=== PATIENT | female | born 1985 | race Caucasian/White ===

== ENCOUNTER 2023-12-30 10:00 | Outpatient (CLI) | payer OTHER, SELFPAY ==
[2023-12-30 10:42] LABS: Hematocrit 42.8 % (37.0-47.0); Hemoglobin 14.4 g/dL (12.0-15.0); Mean Corpuscular HGB Conc 33.6 g/dl (32-36); Mean Corpuscular Hemoglobin 31.4 pg (26-34); Mean Corpuscular Volume 93.4 fl (80-100); Mean Platelet Volume 10.1 fl (7.4-10.4); Platelet Count Result 237 k/mm3 (150-375); Red Blood Count 4.58 M/mm3 (4.2-5.4); Red Cell Distribution Width 12.9 % (11.5-14.5); White Blood Count 6.5 K/mm3 (4.5-10.0)
[2023-12-30 11:10] LABS: Albumin Level 4.3 g/dL (3.5-5.1); Anion Gap 8 mmol/L (4-12); Blood Urea Nitrogen 15 mg/dL (7-17); Calcium 9.2 mg/dL (8.4-10.2); Carbon Dioxide 28 mmol/L (22-30); Chloride 101 mmol/L (98-107); Estimated Glomerular Filt Rate > 60; Glucose 94 mg/dL (65-110); Potassium 3.8 mmol/L (3.4-5.0); Sodium 137 mmol/L (137-145)
[2023-12-30 12:27] LABS: Iron 86 ug/dL (37-170)
[2023-12-30 15:45] LABS: Prealbumin 26.2 mg/dL (17.6-36.0)
[2024-01-02 05:13] LABS: Vitamin B1 8 nmol/L (8-30)
== END 2023-12-30 10:01 | disposition home or self-care (01) ==
LOC: ANHLAB 10:05
PROVIDERS: Visit Provider Surgery Plastic and Reconstructive Surgery
DX: R63.4 Abnormal weight loss (principal)
CPT/HCPCS: 36415; 80048; 82040; 83540; 84134; 84425; 85027

== ENCOUNTER 2024-01-23 01:29 | Day surgery (SDC) | payer OTHER, SELFPAY ==
[2024-01-15 14:00] VITALS: BMI 30.2
--- NOTE | 2024-01-15 14:12 | SUR.PREOP ---
Report to the Outpatient Waiting Room, entrance under the green pavilion located off [facility], at time 0600 on date 01/23/2024. Planned Procedure Time: 0730.? Time changes happen often and if your time is changed the preop area will call you the afternoon before. - You and your visitor will be asked to self-screen and do not enter if you have any COVID symptoms. Please call surgeon if you need to reschedule. - A mask is optional within the hospital at this time. Patients may have clear liquids (water, carbonated beverages, clear teas, apple juice) until 3 hours prior to surgery with a maximum of 20 ounces. - No food from midnight until time of surgery and no smoking - Infants may have breast milk until 4 hours before surgery, infant formula 6 hours prior to surgery. - Children will be allowed to drink immediately following surgery.? If applicable, please bring a bottle or sippy cup to assist with drinking. Juice, water, soda, and popsicles are readily available.? For infants on formula, please bring formula the day of surgery.? Pacifiers are allowed. Take only the following medications with a SIP of water on the morning of surgery: N/A DO NOT STOP ANY OF YOUR OTHER PRESCRIPTION MEDICATIONS PRIOR TO SURGERY EXCEPT THE FOLLOWING Medications to discontinue per physician N/A Date to take last dose N/A Please no make-up, nail belizean, hairspray, perfume, deodorant, or body powder the day of surgery.? No jewelry (including any body piercings) or valuables the day of surgery, leave them at home.? Please take a shower or bath the night before, or the morning of, surgery with an antibacterial soap.? Wear comfortable, loose fitting clothing.? Children are encouraged to wear pajamas. - Jewelry must be removed prior to entering the operating room.? Rings and piercings that are not removed may be cut off. - The hospital will not accept responsibility for valuables.? - Please leave all valuables, including medications, at home the day of surgery. If you are going home after surgery, a licensed shuttle van driver must drive you home.? - NO public transportation without another adult if you receive anesthesia. - We recommend that an adult stay with you for 24 hours following discharge. - We also recommend that you do not drive, make important decision, drink alcoholic beverages, or take any drugs that were not prescribed by your health care provider for at least 24 hours after your discharge time. For Pediatric surgeries, we recommend two adults accompany the child home. Follow any additional instructions given to you from your surgeon. Telephone instructions given to Rachel Pat and asked if any additional questions and then verbalized understanding. Patient advised to call surgeon office or pre surgery nurse liaison [phone] if any additional questions.
[2024-01-23] VITALS (11 sets, daily range): BP systolic 116–137; BP diastolic 59–85; PULSE 55–88; RESP 12–20; TEMP 36.2–36.3; O2SAT 97–100; BMI 31.5
[2024-01-23 06:30] LABS: Urine Cotinine NEGATIVE
--- NOTE | 2024-01-23 06:49 | P.PNAN_ITS ---
Anes - Initial Pre Proc Eval Procedure: Operation Date: 01/23/24 07:30 Proposed Procedures p Bilateral Breast Reduction - Ludwig Bruno MD Date/Time: 01/23/24 06:49 Surgeon: Ludwig Bruno MD Pre Op Diagnosis: macromastia Patient Data Age: 38 Gender: F Height: 1.52 m Weight: 73.2 kg Last Vital Signs Temp 36.2 C L 01/23/24 06:37 Pulse 62 01/23/24 06:37 BP 118/71 01/23/24 06:37 Pulse Ox 100 01/23/24 06:37 O2 Del Method Room Air 01/23/24 06:37 Allergies Allergy/AdvReac Type Severity Reaction Status Date / Time latex Allergy Rash Verified 01/15/24 13:57 Home Medications Medication Instructions Recorded Confirmed Type No Home Medications 01/15/24 01/15/24 History Laboratory Tests 01/23/24 06:15 Cotinine Negative Patient hx anesthesia problems: none Family hx anesthesia problems: none Results Review: All pre-operative results and documents have been reviewed as part of the pre- operative evaluation. [facility] Social History Social History Smoking status: Never smoker Alcohol intake: current Drinks per week: 6 Substance use: current Substance use type: marijuana Other substance usage details: edibles, takes 3x a week Last use: 01/13/2024 Living arrangements: with family Spiritual care concerns: No Anes - Eval Final PreProcedure Day of Procedure 01/23/24 06:49 Patient weight: overweight Heart: regular rate and rhythm Lungs: clear to auscultation Airway: Mallampati scale class II Neurological: alert and oriented Last oral intake: >/= 8 hours ASA classification: II Emergent: no Anesthetic plan: proceed Anesthesia type and monitoring: general LMA and standard monitoring Results Review: All pre-operative results and documents have been reviewed as part of the pre- operative evaluation. Informed Consent: The patient's anesthetic plan and its attendant risks and benefits were discussed with the patient/family/POA. Questions were solicited and answers provided to the satisfaction of the patient/family/POA.
--- NOTE | 2024-01-23 07:01 | WPDHPUPDATE1 ---
History and Physical Update Update Date/Time: 01/23/24 07:01 History and Physical has been reviewed, including an updated exam of the patient. There are NO changes in the patient's condition. Risks, benefits, and alternatives have been discussed and questions answered. Patient agrees to proceed with procedure.
--- NOTE | 2024-01-23 07:21 | P.OP_ITS ---
Procedure Note - Detailed Date of Procedure 01/23/24 Pre-op Diagnosis macromastia Post-op Diagnosis Same Procedure Performed Bilateral reduction mammaplasty Surgeon Ludwig Bruno MD Anesthesia General Findings Inverted T Superior medial pedicle Tissue removed: Right - 616.9 grams Left - 474.6 grams Lipoaspirate: 500 cc Description of Procedure She is here today for bilateral breast reduction as a staged procedure for future breast augmentation. Previously and again today the risks, benefits, alternatives were discussed in extensive detail. I wanted her to be very realistic about the risks involved as well as expectations. Again today we reviewed the options and limitations of this procedure. Her goal is to decrease volume as much as possible prior to augmentation to maximize lift effect. She understands by staging this with breast reduction she is at risk that if there are concerns / complications with implants she could be permanently with smaller breasts than she desires. Given this concern and limitations of the procedures as well as risks we again reviewed this extensively today as well as risks of next procedure as this is staged. She is already scheduled for the next stage. We discussed aftercare and what to monitor for. She understands we can never guarantee final breast size and there will always be asymmetry. I was very upfront and honest about the risks of sensation change and even nipple loss (). Made sure answered all of her questions to her satisfaction today and consent was obtained. She was marked in the preoperative holding area with their verification. The patient was taken to the operating room placed supine on the operating table. Anesthesia was provided by anesthesiology. She was prepped and draped in a standard sterile fashion. A surgical time-out was taken. Stab incisions were made and I tumesced with a tumescent solution. Suction lipectomy of lateral breast / chest wall was completed for contouring utilizing a 4mm damion cannula. This was based on preoperative planning, in traoperative observation, and a rolling pinch test which was in full agreement. I marked out the nipple-areolar complex at 42 mm. I then de-epithelialized the pedicle. The pedicle was well left well more than 2 cm in thickness. I then removed the inferior portion of the breast as well as the central keel to get shape based on preoperative planning. At this point copiously irrigated with saline solution and verified a strict hemostasis. I reapproximated the pillars using a 2-0 PDS. I tailor tacked the breast into place with marco. She was placed in a sitting position. I verified the nipple-areolar complex position based on preoperative markings, intraoperative measurements, and observation which were in full agreement. This nipple-areolar complex was marked at 42 mm in size. I then placed supine and de-epithelialized this. Nipple-areolar complex was inset with 3-0 Monocryl. I closed IMF deep with 1 strattafix. I closed the vertical incision with 3-0 Monocryl in the IMF with 3- 0 stratafix. Then everything was closed using a running subcuticular 4-0 Monocryl and tissue glue. A dressing was placed followed by surgical bra. Patient was awoke and taken to PACU without difficulty. All instrument sponge counts were correct at the end of the case. Estimated Blood Loss 50 Drains No Packing No Pathology None sent Complications No immediate complications Condition Stable Disposition PACU
[2024-01-23] MEDS: ceFAZolin 2 GM/D5W 50 ML 2 GM/50 ML BAG IVPB (07:31)
[2024-01-23] MEDS: TRANEXAMIC ACID 1,000MG/ISO100 1,000 MG/100 ML BAG 200 MG IVPB (07:40)
[2024-01-23 07:42] LABS: BEDSIDEPREGUCG Negative (Negative)
[2024-01-23] MEDS: LACTATED RINGERS 1,000 ML 30 ML IV CONT ×2 (07:42→10:36)
[2024-01-23] MEDS: LACTATED RINGERS IRRIG 1,000 ML, LIDOCAINE HCL 1% LOCAL INJ 50 ML, EPINEPHrine HCL INJ ... INFILTRATE (07:50)
--- NOTE | 2024-01-23 09:56 | SUR.OPER ---
Right breast tissue 616.9g, excision time 826 Left breast tissue 474.6g, excision time 911 [facility] transported breast tissue to lab at 0941 [facility] in Lab received breast tissue at 0947
[2024-01-23] MEDS: SCOPOLAMINE 1 MG PATCH 1 PATCH TRANSDERM (10:36)
[2024-01-23] MEDS: fentaNYL CITRATE INJ (*CRX) 100 MCG/2 ML VIAL 25 MCG IV PUSH ×3 (11:03→11:30)
[2024-01-23] MEDS: traMADol HCL (*CRX) 50 MG TABLET PO (12:20)
[2024-01-23] MEDS: ONDANSETRON HCL ODT 4 MG TABLET PO (13:16)
== END 2024-01-23 13:21 | disposition home or self-care (01) ==
PROVIDERS: Visit Provider Surgery Plastic and Reconstructive Surgery
PROC: 0HBV0ZZ Excision of Bilateral Breast, Open Approach (ICD-10-PCS; CPT 19318; principal; 2024-01-23 07:30)
DX: N62 Hypertrophy of breast (principal); F12.90 Cannabis use, unspecified, uncomplicated
CPT/HCPCS: 19318; 80307; 88305; A9270; J0171; J0690; J1100; J1170; J1200; J2250; J2405; J2704; J3010; J7120

== ENCOUNTER 2024-04-22 05:49 | Day surgery (SDC) | payer OTHER, SELFPAY ==
[2024-04-01 13:17] VITALS: BMI 29.4
[2024-04-22] VITALS (10 sets, daily range): BP systolic 119–161; BP diastolic 85–97; PULSE 55–84; RESP 14–18; TEMP 36.1–36.6; O2SAT 96–100; BMI 31.8
--- NOTE | 2024-04-22 06:55 | WPDHPUPDATE1 ---
History and Physical Update Update Date/Time: 04/22/24 06:55 History and Physical has been reviewed, including an updated exam of the patient. There are NO changes in the patient's condition. Risks, benefits, and alternatives have been discussed and questions answered. Patient agrees to proceed with procedure.
--- NOTE | 2024-04-22 07:06 | W.PM.PROC2 ---
Procedure Note - Detailed Date of Procedure 04/22/24 Pre-op Diagnosis Micromastia Post-op Diagnosis Same Procedure Performed Bilateral breast augmentation Surgeon Ludwig Bruno MD Anesthesia General Findings Bilateral subfascial 650cc Christie Chou SoftTouch Right: REF# REF# [id number] SN [id number] Left: REF# REF# [id number] SN [id number] Description of Procedure She is here today for bilateral breast augmentation. Previously and again today the risks, benefits, alternatives were discussed in extensive detail. I wanted her to be very realistic about the risks involved as well as expectations. We discussed aftercare and what to monitor for. Made sure answered all of her questions to her satisfaction today and consent was obtained. Marked in the preoperative holding area with their verification. The patient was taken to the operating room placed supine on the operating table. Anesthesia was provided by anesthesiology. A surgical time-out was taken. We cleansed the skin and 1% lidocaine and 0.25% Marcaine with epinephrine was used anesthetize as a field block. She was prepped and draped in a standard sterile fashion. Tegaderm nipple Smyth were placed. A 15 blade used to make an incision along the inframammary fold. Dissection was continued at 45 degree angle until the chest wall as identified. I elevated a subfascial pocket in the appropriate dimensions based on our preoperative planning for the implant. I then copiously irrigated with saline solution and verified a strict hemostasis. Next the use a triple antibiotic and Betadine containing solution to irrigate the pocket. I washed my gloves with the triple antibiotic and Betadine solution. We washed the implant immediately upon opening it with this solution and only opened it when we needed it. I used implant funnel and no-touch technique. The implant was introduced into the pocket using the funnel. Having verified positioning of the implant this was closed using 2-0 PDS followed by 3-0 Monocryl in a running subcuticular 4-0 Monocryl followed by tissue glue. Fluffs and surgical bra were placed. Patient was awoke and taken to PACU without difficulty. All instrument sponge counts were correct at the end of the case. Estimated Blood Loss 20 Drains No Packing No Pathology None sent Complications No immediate complications Condition Stable Disposition PACU
--- NOTE | 2024-04-22 07:08 | P.PNAN_ITS ---
Anes - Initial Pre Proc Eval Procedure: Operation Date: 04/22/24 07:30 Proposed Procedures p Bilateral Breast Augmentation Mammoplasty with Galaflex - Ludwig Bruno MD Date/Time: 04/22/24 07:08 Surgeon: Ludwig Bruno MD Pre Op Diagnosis: Micromastia Patient Data Age: 38 Gender: F Height: 1.52 m Weight: 74 kg Last Vital Signs Temp 36.6 C 04/22/24 06:36 Pulse 64 04/22/24 06:36 Resp 16 04/22/24 06:36 BP 119/85 04/22/24 06:36 Pulse Ox 100 04/22/24 06:36 O2 Del Method Room Air 04/22/24 06:36 Allergies Allergy/AdvReac Type Severity Reaction Status Date / Time latex Allergy Rash Verified 04/22/24 06:30 Home Medications ?Medication ?Instructions ?Recorded ?Confirmed ?Type No Home Medications 01/15/24 04/01/24 History Patient hx anesthesia problems: none Family hx anesthesia problems: none Results Review: All pre-operative results and documents have been reviewed as part of the pre- operative evaluation. [facility] Past Medical History Medical History (Updated 04/22/24 @ 07:08 by Skyler Guerra MD) Obesity Surgical History Surgical History (Updated 04/22/24 @ 07:08 by Skyler Guerra MD) History of cholecystectomy History of appendectomy H/O mastopexy Social History Social History Smoking status: Never smoker Second hand tobacco smoke exposure: Yes Alcohol intake: current Drinks per week: 5 Substance use: current Substance use type: marijuana Other substance usage details: Few times per week Last use: 01/13/2024 Living arrangements: with family Spiritual care concerns: No Anes - Eval Final PreProcedure Day of Procedure 04/22/24 07:08 Patient weight: obese Heart: regular rate and rhythm Lungs: clear to auscultation Airway: Mallampati scale class II Neurological: alert and oriented Last oral intake: >/= 8 hours ASA classification: II Emergent: no Anesthetic plan: proceed Anesthesia type and monitoring: general LMA and standard monitoring Results Review: All pre-operative results and documents have been reviewed as part of the pre- operative evaluation. Informed Consent: The patient's anesthetic plan and its attendant risks and benefits were discussed with the patient/family/POA. Questions were solicited and answers provided to the satisfaction of the patient/family/POA.
[2024-04-22] MEDS: LACTATED RINGERS 1,000 ML 30 ML IV CONT ×2 (07:14→08:38)
[2024-04-22] MEDS: SCOPOLAMINE 1 MG PATCH 1.5 PATCH TRANSDERM (07:20)
--- NOTE | 2024-04-22 07:21 | SUR.PREOP ---
0700; FEMALE STAFF PRESENT WHILE DR KHAN MARKING PT. SPOUSE AT BEDSIDE
[2024-04-22] MEDS: ceFAZolin SODIUM 2 GM/20 ML SW SYRINGE IV PUSH (07:25)
[2024-04-22] MEDS: TRANEXAMIC ACID 1,000 MG/10 ML AMPUL 1000 MG IV PUSH (07:25)
[2024-04-22] MEDS: BUPivacaine HCL 0.25% PF 30 ML VIAL INFILTRATE (07:31)
[2024-04-22] MEDS: LIDO 1%/EPINEPHRINE 1:100,000 10 ML VIAL 30 ML INFILTRATE (07:57)
[2024-04-22] MEDS: NACL 0.9% IRRIG POUR BOTTLE 900 ML, GENTAMICIN SULFATE INJ 160 MG, ceFAZolin 2 GM, POVI... IRRIGATION (07:59)
[2024-04-22] MEDS: fentaNYL CITRATE INJ (*CRX) 100 MCG/2 ML VIAL 25 MCG IV PUSH ×4 (08:50→09:18)
[2024-04-22] MEDS: oxyCODONE HCL (*CRX) 5 MG TAB IR PO (09:42)
[2024-04-22] MEDS: ONDANSETRON INJ 4 MG/2 ML VIAL IV PUSH (09:47)
--- NOTE | 2024-04-22 10:11 | WPDANESPN ---
Anes - Prog Note Post-Op Date/Time: 04/22/24 10:11 Cardiovascular status: normal Respiratory status: normal Airway patency: baseline Mental status: baseline Post-Op hydration status: normal Vital Signs: Last Vital Signs Temp 36.1 C L 04/22/24 08:38 Pulse 60 04/22/24 09:30 Resp 16 04/22/24 09:30 BP 150/94 H 04/22/24 09:30 Pulse Ox 100 04/22/24 09:30 O2 Del Method Room Air 04/22/24 09:30 O2 Flow Rate 8 04/22/24 09:05 Pain Score (VAS): 07/20 I/O: Intake & Output 04/21/24 04/22/24 04/22/24 23:59 07:59 15:59 Intake Total 150 Balance 150 Patient Feedback: Patient satisfied with anesthetic care.
== END 2024-04-22 10:28 | disposition home or self-care (01) ==
PROVIDERS: Visit Provider Surgery Plastic and Reconstructive Surgery
PROC: (CPT 19325; principal; 2024-04-22 07:30)
DX: N62 Hypertrophy of breast (principal)
CPT/HCPCS: 19325